=== PATIENT | female | born 1970 | race Hispanic/Latino ===

== ENCOUNTER 2023-03-06 13:10 | Emergency (ER) | payer BC ==
[2023-03-06 14:30] VITALS: BP 135/78; PULSE 78; RESP 18; O2SAT 98
[2023-03-06 14:33] LABS: MEAN CORPUSCULAR HEMOGLOBIN 28.6 pg (27.0-33.0); MEAN CORPUSCULAR HGB CONC 33.9 g/dL (32.0-36.0); MEAN CORPUSCULAR VOLUME 84.5 fL (79-99); RED BLOOD CELL COUNT(AUTO) 3.67 MIL/uL (4.00-5.50); RED CELL DISTRIBUTION WIDTH 14.2 % (11.0-15.5); WHITE BLOOD COUNT (AUTO) 8.9 K/uL (4.8-10.8)
[2023-03-06] MEDS: 0.9%NACL 1000ML 1,000 ML IV ONE (14:45)
[2023-03-06] MEDS: METOCLOPRAMIDE 10 MG/2 ML VIAL IVP ONE (14:46)
[2023-03-06] MEDS: MORPHINE 4 MG SYG IVP ONE (14:46)
[2023-03-06 15:20] LABS: ALBUMIN 2.9 g/dL (3.5-5.0); BILIRUBIN,DIRECT 0.1 mg/dL (0.0-0.3); BILIRUBIN,TOTAL 0.3 mg/dL (0.2-1.0); TOTAL PROTEIN, SERUM 8.1 g/dL (6.0-8.3)
[2023-03-06 15:37] LABS: APPEARANCE,URINE CLEAR (CLEAR); BILIRUBIN,URINE NEGATIVE (NEGATIVE); COLOR,URINE LIGHT-YELLOW (YELLOW); GLUCOSE, URINE (UA) NEGATIVE (NEGATIVE); KETONES,URINE NEGATIVE (NEGATIVE); LEUKOCYTE ESTERASE ,URINE NEGATIVE Leu/uL (NEGATIVE); NITRATE,URINE NEGATIVE (NEGATIVE); OCCULT BLOOD,URINE NEGATIVE (NEGATIVE); PROTEIN,URINE 20 mg/dL (NEGATIVE); UROBILINOGEN,URINE 0.2 mg/dL (0.2-1.0)
[2023-03-06 15:41] LABS: ADD UA MICROSCOPIC YES
[2023-03-06 15:42] LABS: BACTERIA,URINE RARE /HPF (None Seen); MUCUS,URINE RARE LPF (None Seen); SQUAMOUS EPITHELIAL CELL,UR RARE /HPF (0-2)
[2023-03-06] MEDS ORDERED: LORAZEPAM 2 MG/ML 1 ML VIAL IVP ONE (16:00)
[2023-03-06 16:16] LABS: CREATININE 0.8 mg/dL (0.5-1.5); POTASSIUM 4.2 mmol/L (3.5-5.1)
== END 2023-03-06 16:06 | disposition left against medical advice (07) ==
LOC: EDH 13:10
DX: R10.9 Unspecified abdominal pain (principal); Z72.89 Other problems related to lifestyle
CPT/HCPCS: 99284; 96374; 96361; 96375; 80076; 84484; 80048; 83690; 85027; 83605; 81001; 36415; 93005; J7030; J2270; J2765

== ENCOUNTER 2025-03-06 13:53 | Emergency (ER) | payer SELFPAY ==
[~2025-03-06] VITALS: Ht 154.9 cm; Wt 52.2 kg
--- NOTE | 2025-03-06 14:02 | ERN ---
ED Note History of Present Illness Stated Complaint: VAGINAL BLEEDING Chief Complaint: Vaginal Problems/Bleeding Time Seen by MD: 13:54 Dictation: PATIENT IS A 54-YEAR-OLD FEMALE COMING IN TODAY WITH COMPLAINTS OF PELVIC PAIN WITH INTERMITTENT BLEEDING VAGINALLY FOR LAST TWO MONTHS ON-CALL. SHE STATES SHE HAS NOT BEEN TO SEE HER PRIMARY CARE DOCTOR AT THE [facility]. SHE HAS NOT TAKEN ANYTHING PRIOR TO ARRIVAL I TOLD HER I WOULD BE GLAD TO TREAT HER PAIN HOWEVER I WOULD NEED TO REFER HER BACK TO [facility] FOR TRACTOR SWEEPER DRIVER REFERRAL. Past Medical History RN Note Reviewed/Agreed w/PFSH: Yes Review of System Dictation CONSTITUTIONAL: NEGATIVE EXCEPT FOR HPI HEAD/FACE: NEGATIVE EXCEPT FOR HPI EENT: NEGATIVE EXCEPT FOR HPI RESPIRATORY: NEGATIVE EXCEPT FOR HPI GASTROINTESTINAL/ABDOMINAL: NEGATIVE EXCEPT FOR HPI GENITOURINARY: NEGATIVE EXCEPT FOR HPI VAGINAL BLEEDING WITH PELVIC PAIN INTERMITTENT FOR TWO MONTHS MUSCULOSKELETAL: NEGATIVE EXCEPT FOR HPI INTEGUMENTARY: NEGATIVE EXCEPT FOR HPI NEUROLOGICAL/PSYCH: NEGATIVE EXCEPT FOR HPI HEMATOLOGIC/LYMPHATIC: NEGATIVE EXCEPT FOR HPI ALL SYSTEMS NEGATIVE, EXCEPT NOTED ABOVE. 13 POINT REVIEW OF SYSTEMS ASSESSED AND ALL NEGATIVE EXCEPT FOR ABOVE. Physical Exam Dictation VITAL SIGNS REVIEWED GENERAL APPEARANCE: ALERT, ORIENTED X 3, MILD ACUTE DISTRESS, WELL DEVELOPED, NOURISHED. HEAD AND FACE: NON-TRAUMATIC. EYES: PERRL, PINK CONJUNCTIVAS, EYELID NO TRAUMA, ANTERIOR CHAMBER WITH ARCUS SENILIS. EARS: PINNAS INTACT AND NO SIGNS OF TRAUMA OR ERYTHEMA EAR CANALS CLEAR AND NO DISCHARGE TM NO ERYTHEMA NOSE: NO DISCHARGE, NO BLEEDING. OROPHARYNX: MOUTH NORMAL, TONGUE PINK, PHARYNX CLEAR,NO ERYTHEMA, TONSILS NO EXUDATES, NO ABSCESSES NOTED, MUCOUS MEMBRANE MOIST NECK: SUPPLE, NON-TENDER, NO THYROMEGALY, NO MASSES, NO JVD, NO BRUITS BREAST:DEFERRED CHEST:NO TENDERNESS, NO CREPITUS, NO PARADOXICAL MOVEMENT, NO RETRACTIONS LUNGS:CLEAR, WELL-VENTILATED, SYMMETRIC, NO RALES, NO WHEEZING, NO RHONCHI, NO STRIDOR, GOOD BREATH SOUNDS BILATERALLY HEART: REGULAR RATE, REGULAR RHYTHM, NO MURMUR, NO GALLOPS VASCULAR: NO PERIPHERAL EDEMA, ABDOMEN: SOFT, POSITIVE BOWEL SOUNDS, NONDISTENDED, NO GUARDING, NONTENDER, NO REBOUND, NO MASSES NO HEPATOMEGALY, NO SPLENOMEGALY, NO AVALOS'S SIGN, NO HERNIAS. RECTAL: DEFERRED GENITAL: DEFERRED NEUROLOGICAL: NORMAL SPEECH, MOTOR FUNCTION INTACT, SENSORY FUNCTION INTACT MUSCULOSKELETAL: NECK NONTENDER, FULL RANGE OF MOTION, BACK NONTENDER, FULL RANGE OF MOTION, EXTREMITIES: NONTENDER, FULL RANGE OF MOTION SKIN: COLOR PINK, DRY, NO TURGOR, NO RASH, NO LACERATIONS, NO ABRASIONS, NO CONTUSIONS. LYMPHATIC: DEFERRED Results (Laboratory/Radiology) Labs Reviewed?: Yes Medical Decision Making MDM 1400/NO LABS OR IMAGING INDICATED. PATIENT WILL BE TREATED EMPIRICALLY FOR PELVIC PAIN SHE IS AWARE THAT SHE CAN FOLLOW UP WITH HER DOCTOR AT [facility] FOR REFERRAL TRACTOR SWEEPER DRIVER DOCTOR. DX & DISP Disposition: Discharge Departure Impression: Primary Impression: Chronic pelvic pain in female Condition: Stable Additional Instructions: FOLLOW-UP WITH PRIMARY CARE PROVIDER IN 1 TO 2 DAYS. TAKE MEDICATIONS DIRECTED HERE IN THE EMERGENCY ROOM. OKAY TO CONTINUE HOME MEDICATIONS UNLESS OTHERWISE DISCUSSED DURING YOUR VISIT IN THE EMERGENCY ROOM TODAY. RETURN TO YOUR NEAREST EMERGENCY ROOM IF SYMPTOMS WORSEN OR IF THERE IS NO IMPROVEMENT. CALL 911 IF YOU NEED IMMEDIATE ASSISTANCE. TAKE TYLENOL OR MOTRIN [id number] NEEDED AND IF NO CONTRAINDICATIONS ARE PRESENT. INCREASE ORAL HYDRATION. A WOUND CULTURE OR URINE CULTURE WAS ORDERED HERE IN THE EMERGENCY ROOM DEPARTMENT PLEASE FOLLOW-UP WITH PRIMARY CARE PROVIDER AND ADVISE THEM TO GET REPEAT PORTS FROM OUR FACILITY. IF YOU HAD ANY MEGAN WRAP/SPLINTS THAT WERE APPLIED HERE, PLEASE DO NOT REMOVE THEM UNTIL YOU SEE YOUR PRIMARY CARE OR SPECIALTY. FOLLOW UP WITH THE YOUR DOCTOR AT [facility] FOR TRACTOR SWEEPER DRIVER REFERRAL. Referrals: Jarod ABREU MD (PCP) Time of Disposition: 14:01 I have reviewed the case, and I agree with, Diagnosis and Plan ZURI COHEN Mar 06, 2025 14:02
[2025-03-06 14:25] VITALS: BP 137/85; PULSE 87; RESP 20; TEMP 97.4; O2SAT 97
[2025-03-06] MEDS: HYDROcodone/APAP 5/325 1 TAB TABLET PO ONE (14:46)
== END 2025-03-06 14:48 | disposition home or self-care (01) ==
LOC: EDH 13:53
DX: G89.29 Other chronic pain (principal); R10.20 Pelvic and perineal pain unspecified side; N93.9 Abnormal uterine and vaginal bleeding, unspecified
CPT/HCPCS: 99283